=== PATIENT | male | born 1975 | race African-American/Black ===

== ENCOUNTER 2018-09-13 23:32 | Emergency (ER) | payer MEDICAID ==
[~2018-09-13] VITALS: Ht 175.3 cm; Wt 101.0 kg
[2018-09-14 00:07] VITALS: BP 161/104
== END 2018-09-14 03:26 | disposition left against medical advice (07) ==
LOC: ER 23:32
DX: R07.9 Chest pain, unspecified (principal); Z53.21 Procedure and treatment not carried out due to patient leaving prior to being seen by health care provider
CPT/HCPCS: 93005